=== PATIENT | female | born 1950 | race Caucasian/White ===

== ENCOUNTER → 2016-09-27 | Day surgery (SDC) | payer MEDICARE, BC ==
[~2016-09-27] MED LIST: ADVAIR 100-501 EAC1 INH; ADVAIR 250-501 EAC1 INH; ALBUTEROL17 GM INH; ATORVASTATIN CA10 MG PO; B COMPLEX1 TAB PO; CELEXA20 MG PO; CLARITIN10 M2 PO; EPITOL; ESTRACE1 MG PO; KLONOPIN1 M1 PO; LEVOTHYROXINE100 MCG PO; MOBIC PO; NEXIUM PO; NORVASC2.5 MG PO; PRILOSEC20 M1 PO; SYMBICORT INH; VITAMIN C500 M6 PO; [UNRECOGNIZED DRUG - OTHER]; [UNRECOGNIZED DRUG - OTHER]
--- NOTE | ~2016-09-27 | OR ---
Unit #: [id number] #: [id number] Patient: ANGIE CASTELLON [id number] [address] [place], [place] [address] [id number] O MR#: [id number] NAME: ANGIE CASTELLON ROOM: Date of Procedure: 09/27/2016 Admission Date: 09/27/2016 Surgeon: Refugio Beck M.D. : 1950 Attending Physician: Refugio Beck M.D. Primary Care Physician: Ben Guzman M.D. OPERATIVE REPORT PREOPERATIVE DIAGNOSES The patient has at least 21 colonic adenomas removed during last examination more than a year ago. She has therefore came back for a repeat examination of the colon. PROCEDURES PERFORMED 1. Colonoscopy and polypectomy. 2. Colonoscopy and submucosal injection. POSTOPERATIVE DIAGNOSES 1. The patient had a large 3.5 cm sessile polyp in the mid descending colon. The latter was removed using piecemeal polypectomy after submucosal saline injection and elevation. The retrieved polyps were then sent for histology. 2. Mild sigmoid and descending colon diverticulosis. 3. Rest of the examination up to cecum was normal. The quality of the prep was excellent. RECOMMENDATIONS Follow up the results of polyp histology and consider repeat examination in 3 years. SEDATION USED MAC. DESCRIPTION OF PROCEDURE Following detailed explanation of the potential risks and complications of a colonoscopy, namely perforation, bleeding, and complications related to sedation, the patient was brought to GI lab and laid in the left lateral decubitus position. A digital rectal examination was performed, which was normal. Lubricated tip of the Olympus video colonoscope was inserted through the anus and advanced under direct vision. The scope was advanced past rectosigmoid into descending colon. Scant small diverticula were noticed in this area. The scope tip was then navigated all the way up to cecum with visualization of the ileocecal valve and the appendiceal orifice. Preparation was excellent with good visualization and photodocumentation was obtained. Successive segments of the colonic mucosa were examined upon withdrawal. A single sessile polyp about 3.5 cm in size was noted in the proximal descending colon. This was a large sessile adenoma. Decision was made to remove this using technique of piecemeal polypectomy. The polyp was raised above the surface by submucosal saline injection and elevation and then the polyp was removed Unit #: [id number] #: [id number] Patient: ANGIE CASTELLON with the snare cautery polypectomy in toto. It was retrieved and sent for histology. Excellent hemostasis was achieved and photodocumentation was obtained. No additional polyps were noted. Other than the scant diverticula, no other abnormalities were noted. The patient did not have any hemorrhoids at the anal verge. The scope was then withdrawn and the patient returned to recovery area. She tolerated the procedure without any postprocedure complications. Dictated by... Wellington Oneill/harini TD: 09/28/2016 01:58 JOB #: [id number] CC: Ben Guzman M.D. OPERATIVE REPORT Page 1 of 1 X Refugio Beck MD X PROCEDURE OPERATIVE NOTE
== END | disposition home or self-care (01) ==
LOC: COPS 08:34
DX: D12.4 Benign neoplasm of descending colon (principal); K57.30 Diverticulosis of large intestine without perforation or abscess without bleeding; Z86.010 Personal history of colon polyps; K21.9 Gastro-esophageal reflux disease without esophagitis; J45.909 Unspecified asthma, uncomplicated; M41.9 Scoliosis, unspecified; N39.3 Stress incontinence (female) (male)
CPT/HCPCS: 88305